=== PATIENT | male | born 1945 | race Caucasian/White ===

== ENCOUNTER 2016-10-04 11:40 | Inpatient (IN) | payer BC, MEDICARE ==
--- NOTE | ~2016-10-04 | DS ---
Discharge Summary [facility] [address] [place]. [address] NAME: HAILEY CYR : 47 STATUS : DIS IN PAT#: [id number] AGE: 71 ADM/REG DATE : 10/04/16 MR#: [id number] REPORT SERV DATE: 10/09/16 DICTATED BY: MARTÍN CINTRON DATE: 10/08/16 REPORT STATUS : Draft TRANSCRIBED BY: MODL DATE: 10/08/16 ADMISSION DATE: 10/04/2016 DISCHARGE DATE: 10/08/2016 DISCHARGE DIAGNOSES: 1. Pulmonary emboli, bilateral. 2. Congestive heart failure with a normal ejection fraction, acute. 3. Acute kidney injury due to diuresis, now resolved. 4. Uncontrolled hypertension, now improved. 5. Obstructive sleep apnea, not on current CPAP therapy. The patient to obtain CPAP after discharge. 6. Type 2 diabetes mellitus with neuropathy. 7. Anemia of chronic disease. 8. Morbid obesity. 9. Obesity and related illnesses with treatment. CONSULTANTS DURING THIS HOSPITALIZATION: None. INVASIVE PROCEDURES DONE DURING THIS HOSPITALIZATION: None. BRIEF HISTORY OF PRESENT ILLNESS: The patient is a 71-year-old white male who was triaged in the emergency room on 10/04/2016 at 1010 hours with complaints of chest pain, dyspnea, abdominal distention, and edema. For a detailed history and physical exam, please see note dictated by Dr. Rigoberto Barron on 10/04/2016. HOSPITAL COURSE: After being admitted to the hospital, this patient was placed on cardiac telemetry, given IV fluids, restrictions, was given IV Lasix. Strict I's and O's were done. Two-dimensional echocardiogram was done, which showed normal ejection fraction. He was placed on an 1800-calorie [place] [employer] diet. Dr. Herrera followed the patient postadmission. He had uncontrolled blood pressure, hydralazine was added, Aldactone was added. The D-dimer was slightly high, so Dr. Herrera ordered a CTA of the chest with contrast, which showed bilateral pulmonary embolisms and it was thought that this was related to his sleep apnea, both lower extremity Dopplers were negative. He was started on Xarelto. The patient has been tolerating Xarelto without difficulty. His stress test was canceled because of the pulmonary embolisms. Due to overdiuresis, his creatinine did go up slightly to about 1.32. We adjusted his medications. Today, his creatinine is 1.12. The patient feels well. He is off his O2. He is ambulatory and feels that he could go home, recover in the home setting, and obtain his CPAP machine in the outpatient setting which has already been ordered by Dr. Berry's office. He remained stable and is being discharged in stable condition. DISCHARGE DISPOSITION: Home. DISCHARGE ACTIVITY: As tolerated once CPAP has been obtained and the patient is using it. I recommended that he does not drive until he is on CPAP therapy. Discharge Summary [address] [facility] [place]. [address] NAME: HAILEY CYR : 47 STATUS : DIS IN PAT#: [id number] AGE: 71 ADM/REG DATE : 10/04/16 MR#: [id number] REPORT SERV DATE: 10/09/16 DICTATED BY: MARTÍN CINTRON DATE: 10/08/16 REPORT STATUS : Draft TRANSCRIBED BY: AUSTEN DATE: 10/08/16 DISCHARGE DIET: An 1800-calorie [place] [employer] diet. DISCHARGE MEDICATIONS: Aspirin 325 mg one tablet daily, gabapentin 300 mg three times daily, losartan 100 mg once at bedtime, Toprol-XL 100 mg once daily, Xarelto 15 mg twice daily for loading dose and then 20 mg once at bedtime, Aldactone 25 mg once daily, Flomax 0.4 mg once at bedtime, hydralazine 50 mg twice daily, Lasix 20 mg once daily, glipizide 2.5 mg twice daily, potassium 20 mEq once daily, metformin 500 mg twice daily, and testosterone gel as directed. DISCHARGE FOLLOWUP: With Dr. Baldev Cui, II, in one week. More than 35 minutes spent planning this patient's discharge, reconciling medications, writing prescriptions, discussing hospital care, and followup with the patient and the family at the bedside and documenting this discharge. ANABELLA/AUSTEN Martín Cintron M.D. / [id number] CC: [place]
--- NOTE | ~2016-10-04 | PUL ---
[id number] [place]. [address] NAME: HAILEY CYR : 47 STATUS : ADM IN [facility]#: [id number] AGE: 71 ADM/REG DATE : 10/04/16 MR#: [id number] REPORT SERV DATE: 10/05/16 DICTATED BY: PAVITHRA MERA DATE: 10/05/16 REPORT STATUS : Draft TRANSCRIBED BY: MODL DATE: 10/05/16 PULMONARY FUNCTION TEST OVERNIGHT OXIMETRY REPORT START DATE OF TESTIN10/04/2016 END DATE OF TESTIN10/05/2016 COMMENTS: Testing conducted with the patient breathing supplemental oxygen at a flow rate of 2 L per minute. RESULTS: Total valid sampling time 7 hours 3 minutes and 42 seconds. Total time with an oxygen saturation less than 88%, 0. Oxygen desaturation event index 5.5. IMPRESSION: There was no significant desaturation during this study conducted while the patient was breathing supplemental oxygen at a flow rate of 2 L/minute. The oxygen desaturation index was mildly elevated suggestive of possible obstructive sleep apnea, though as indicated, the patient did not have significant oxygen desaturation. Recommend formal sleep study to evaluate if clinically indicated. PS/MODPrema Pavithra Mera M.D. / [id number] CC: [place] Petersen
--- NOTE | ~2016-10-04 | HP ---
History And Physical [address] [place]. [address] NAME: HAILEY CYR : 47 STATUS : ADM IN [facility]#: [id number] AGE: 71 ADM/REG DATE : 10/04/16 MR#: [id number] REPORT SERV DATE: 10/04/16 DICTATED BY: RIGOBERTO BRIGHT DATE: 10/04/16 REPORT STATUS : Draft TRANSCRIBED BY: MODPrema DATE: 10/04/16 DATE OF ADMISSION: 10/04/2016 CHIEF COMPLAINT: Shortness of breath and bilateral lower extremity swelling. HISTORY OF PRESENT ILLNESS: This is a 71-year-old male with medical history significant for hypertension, diabetes mellitus type 2, morbid obesity, obstructive sleep apnea, BPH, who presented to the hospital with complaints of shortness of breath and bilateral leg swelling. The patient reports that he noticed progressive shortness of breath that started about three months ago, initially on exertion, but has progressively gotten worse. The patient reports that in the last few weeks, he noticed that his shortness of breath occurs when he walks 100 feet from his living room to his truck. He also reports that there is associated worsening bilateral leg swelling. He reports that he takes Lasix at home 40 mg at night, but despite that he continues to have worsening leg swelling. There is associated two-pillow orthopnea, but denies any PND. The patient reports that there is also associated occasional palpitations and some chest tightness, but denies any significant chest pain. The patient reports that he was diagnosed with obstructive sleep apnea, but has not been compliant with a CPAP machine. He denies any cough, fever, chills, or wheezing. He denies any palpitation or presyncopal or syncopal episodes. REVIEW OF SYSTEMS: A 12-point review of systems performed essentially negative. Positive findings as per HPI. PAST MEDICAL HISTORY: 1. Diabetes mellitus type 2. 2. Morbid obesity. 3. Peripheral neuropathy. 4. Hypertension. 5. Benign prostatic hyperplasia. 6. History of renal stones. 7. Obstructive sleep apnea, on CPAP machine. 8. The patient reports history of colon cancer stage I, treated with surgery. PAST SURGICAL HISTORY: 1. Umbilical hernia repair in 2013. 2. Left knee arthroscopic surgery in 2003. 3. Colectomy. 4. Vasectomy. ALLERGIES: ALLERGIC TO MEPERIDINE. HOME MEDICATIONS: 1. Aspirin 325 mg p.o. tablet daily. 2. Lasix 40 mg p.o. in the evening. History And Physical [address] [address] NAME: HAILEY CYR : 47 STATUS : ADM IN [facility]#: [id number] AGE: 71 ADM/REG DATE : 10/04/16 MR#: [id number] REPORT SERV DATE: 10/04/16 DICTATED BY: RIGOBERTO BRIGHT DATE: 10/04/16 REPORT STATUS : Draft TRANSCRIBED BY: AUSTEN DATE: 10/04/16 3. Gabapentin 300 mg p.o. t.i.d. 4. Glipizide 2.5 mg p.o. before breakfast and supper. 5. Motrin 600 mg p.o. b.i.d. as needed for pain. 6. Losartan 100 mg p.o. at bedtime. 7. Metformin 500 mg p.o. with breakfast. 8. Toprol-XL 100 mg p.o. b.i.d. 9. Potassium 20 mEq p.o. daily. 10.Tamsulosin 0.4 mg p.o. at bedtime. 11.Testosterone 1.62% gel. FAMILY HISTORY: He has two brothers who suffer from congestive heart failure, diabetes mellitus, and hypertension. He reports that one of his brother had an AL at the age of 60. SOCIAL HISTORY: Denies smoking cigarettes, drinking alcohol, or illicit drug use. 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 PHYSICAL EXAMINATION: VITAL SIGNS: Blood pressure 196/92, temperature 97.4, pulse 57 beats per minute, respiratory rate 16 cycles per minute, and saturating 96% on room air. GENERAL: Not in any acute distress. HEENT: Normocephalic, atraumatic. Pupils are equal, round, and reactive. Extraocular muscles intact. Not pale. Anicteric. NECK: Supple. No JVD. CHEST: Equal expansion. LUNGS: Bibasilar crackles with reduced breath sound on the left lower lung field. No wheezing. No rhonchi. CARDIOVASCULAR: Regular rate and rhythm. S1,S2. No rubs. No gallops. No murmurs. ABDOMEN: Obese. Bowel sounds normoactive and nontender. No palpably enlarged organomegaly. EXTREMITIES: Lower extremities; bilateral pitting edema +[address] to the mid thigh. NEUROLOGIC: Alert and oriented x3. Cranial nerves 2 through 12 are intact. Strength in all extremities 5/5. Normal reflexes. LABORATORY DATA: Chemistry: Sodium 143, potassium 3.5, chloride 106, bicarb 30, creatinine is 0.95, BUN 18, glucose 111. Calcium 8.5, total protein 6.7, albumin 3.0, globulin 3.7, total bilirubin 0.4, alkaline phosphatase 69, ALT 27, AST 19. Troponin less than 0.02. BNP 279. Hematology: WBC 7.4, hemoglobin 11.1, hematocrit 35.0, and platelets 197. PT 14.9, INR 1.2. Chest x-ray shows prominent pulmonary vascular congestions with trace of bilateral pleural effusions, small, upon my own reading. Official report is pending at this time. Urinalysis is pending. History And Physical [address] [address] NAME: HAILEY CYR : 47 STATUS : ADM IN [facility]#: [id number] AGE: 71 ADM/REG DATE : 10/04/16 MR#: [id number] REPORT SERV DATE: 10/04/16 DICTATED BY: RIGOBERTO BRIGHT DATE: 10/04/16 REPORT STATUS : Draft TRANSCRIBED BY: AUSTEN DATE: 10/04/16 EKG: Sinus rhythm, ventricular rate of 56, QTc 369. ASSESSMENT AND PLAN: 1. Acute decompensated heart failure, although the patient has no official diagnosis of heart failure given the constellation of symptoms of bilateral lower extremity swelling, orthopnea, shortness of breath with pulmonary vascular congestion, this is in keeping with the clinical diagnosis of acute decompensated heart failure. The patient will be started on IV Lasix. We will continue patient's ARBs, losartan 100 mg p.o. at bedtime. We will also continue patient's beta henrry. I will order an echo to estimate the patient's ejection fraction. I will also consult the heart failure team for the diagnosis of new congestive heart failure. The patient will also be admitted to cardiac telemonitoring floor, will be placed on fluid restriction. We will ensure daily weight and strict I's and O's. 2. Hypertension. The patient's blood pressure is significantly elevated at 190/92 on presentation. Repeat blood pressure at the bedside during my evaluation, blood pressure was 156/66, heart rate was 55. We will continue the patient's home dose antihypertensives and add hydralazine to the patient's blood pressure medications for optimal control. 3. Sinus bradycardia. Heart rate of 55 likely related to beta henrry. No evidence of AV block. 4. Diabetes mellitus. We will check the patient's HbA1c. We will start the patient on subcu insulin at this time. We will discontinue the patient's oral hypoglycemic. The patient will be placed on ADA 1800 calorie diet. 5. Obstructive sleep apnea. We will encourage the patient to bring his CPAP machine to wear it during the course of this admission. The patient has also been counseled on the need for extensive compliance with CPAP machine. 6. Admission disposition: Cardiac telemonitoring floor. 7. Admission status: Inpatient. 8. Code status: Full code. 9. Deep venous thrombosis prophylaxis, heparin subcu. 10.The patient will be admitted under the hospitalist service. IOO/MODL Rigoberto Bright MD / [id number] CC: [place] Petersen
[2016-10-04 11:19] LABS: BASOPHILS 0.5 %; BASOPHILS ABSOLUTE 0.04 10/3/uL (0.0-0.16); EOSINOPHILS 2.6 %; EOSINOPHILS ABSOLUTE 0.19 10/3/uL (0.0-0.53); HEMOGLOBIN 11.7 g/dL (13.6-17.8); IMMATURE GRANULOCYTES 0.1 %; IMMATURE GRANULOCYTES ABSOLUTE 0.01 10/3/uL (0.0-0.11); LYMPHOCYTES ABSOLUTE 1.77 10/3/uL (0.67-4.30); MEAN CORPUS HGB CONC 33.4 g/dL (32.0-36.0); MEAN CORPUSCULAR HEMOGLOB 31.8 pg (26.0-34.0); MEAN PLATELET VOLUME 9.7 fL (9.2-13.0); MONOCYTES 5.4 %; NEUTROPHILS 67.4 %; NEUTROPHILS ABSOLUTE 4.98 10/3/uL (2.02-8.40); RBC DISTRIBUTION WIDTH 13.6 % (12.0-16.0); RED CELL COUNT 3.68 10/6/uL (4.7-6.1)
[2016-10-04 11:20] LABS: ER CBC TAT 0 Hrs 07 Mins; MANUAL DIFF NO %; MEAN CORPUSCULAR VOLUME 95.1 fL (80-100); PLATELET COUNT 197 10/3/uL (150-400); WHITE BLOOD CELLS 7.4 10/3/uL (4.5-10.5)
[2016-10-04 11:27] LABS: INTERNATIONAL NORMAL RATI 1.2 UNITS (-); PROTIME (NOT ORD) 14.9 SEC (12.0-14.5)
[2016-10-04 11:38] LABS: CALCIUM, SERUM 8.5 MG/DL (8.5-10.4); CO2 (CARBON DIOXIDE) 30 MMOL/L (24-34); CREATININE 0.95 MG/DL (0.70-1.30); GFR AFRICAN AMERICAN 94 ML/MIN (>=60); GFR NON AFRICAN AMERICAN 81 ML/MIN (>=60); GLUCOSE, SERUM 119 MG/DL (60-99); SGOT(AST) 16 U/L (5-40); SGPT(ALT) 27 U/L (5-65); SODIUM, SERUM 143 MMOL/L (135-148); TOTAL PROTEIN 6.7 G/DL (6.0-8.5); TROPONIN I <0.02 NG/ML (<0.05)
[2016-10-04 11:39] LABS: A/G RATIO 0.8 (0.7-1.9); ALKALINE PHOSPHATASE 67 U/L (45-117); BUN (BLOOD UREA NITROGEN) 18 MG/DL (6-23); CHLORIDE, SERUM 106 MMOL/L (96-112); GLOBULIN 3.7 G/DL (2.5-4.1); POTASSIUM, SERUM 3.5 MMOL/L (3.5-5.3); TOTAL BILIRUBIN 0.4 MG/DL (0-1.2)
[~2016-10-04 11:40] MED LIST: ACET500CAP PO; ADVIL PO; ASAEC PO; BUM2 PO; CARD90 PO; CIP5 PO; COZAAR100 MG PO; DIOV160 PO; EXFORGE1 TAB PO; FLOMAX4 PO; GLUCOTROL5 PO; GLUCPH PO; K-TABS10 MEQ PO; L20 PO; LAM250 PO; MAX25 PO; MULTIPLE VIT PO; NEUR300 PO; SPIRO25 PO; TESS PO; TOPXL100 PO
[2016-10-04] MEDS ORDERED: L40 PO (13:24)
[2016-10-04] MEDS ORDERED: NEUR300 PO (13:25)
[2016-10-04] MEDS ORDERED: FLOMAX4 PO (13:25)
[2016-10-04] MEDS ORDERED: COZAAR100 MG PO (13:25)
[2016-10-04] MEDS ORDERED: TOPXL100 PO (13:25)
[2016-10-04] MEDS ORDERED: GLUCPH PO (13:26)
[2016-10-04] MEDS ORDERED: KDUR20 PO (13:26)
[2016-10-04] MEDS ORDERED: GLUCOTROL5 PO (13:26)
[2016-10-04] MEDS ORDERED: IBU600 PO (13:27)
[2016-10-04] MEDS ORDERED: ASABAYER PO (13:27)
[2016-10-04] MEDS ORDERED: ANDROGEL2.5 GM TOP (13:27)
[2016-10-04 17:00] LABS: FREE T4 1.17 NG/DL (0.76-1.46)
[2016-10-04 17:30] LABS: ASCORBIC ACID (UR NOT ORDER) NEG (NEG); BILIRUBIN, URINE NEGATIVE (NEG); KETONE, URINE NEGATIVE (NEG); LEUKOCYTE ESTERASE(NOT OR LARGE (NEG)
[2016-10-04 17:31] LABS: WBC (NOT ORDERED) (RFLEX) > 182 (0-5)
[2016-10-05 04:51] LABS: BASOPHILS 0.4 %; BASOPHILS ABSOLUTE 0.03 10/3/uL (0.0-0.16); EOSINOPHILS ABSOLUTE 0.25 10/3/uL (0.0-0.53); HEMOGLOBIN 11.6 g/dL (13.6-17.8); IMMATURE GRANULOCYTES 0.2 %; IMMATURE GRANULOCYTES ABSOLUTE 0.02 10/3/uL (0.0-0.11); LYMPHOCYTES 23.1 %; LYMPHOCYTES ABSOLUTE 1.96 10/3/uL (0.67-4.30); MEAN CORPUS HGB CONC 33.1 g/dL (32.0-36.0); MEAN CORPUSCULAR HEMOGLOB 31.9 pg (26.0-34.0); MEAN CORPUSCULAR VOLUME 96.2 fL (80-100); MEAN PLATELET VOLUME 9.7 fL (9.2-13.0); MONOCYTES 6.8 %; MONOCYTES ABSOLUTE 0.58 10/3/uL (0.21-1.20); NEUTROPHILS 66.5 %; NEUTROPHILS ABSOLUTE 5.63 10/3/uL (2.02-8.40); PLATELET COUNT 190 10/3/uL (150-400); RBC DISTRIBUTION WIDTH 13.7 % (12.0-16.0); RED CELL COUNT 3.64 10/6/uL (4.7-6.1); WHITE BLOOD CELLS 8.5 10/3/uL (4.5-10.5)
[2016-10-05 04:58] LABS: MANUAL DIFF NO %
[2016-10-05 05:09] LABS: ALBUMIN 2.9 G/DL (3.5-5.0); BUN (BLOOD UREA NITROGEN) 17 MG/DL (6-23); CALCIUM, SERUM 8.3 MG/DL (8.5-10.4); CHLORIDE, SERUM 104 MMOL/L (96-112); CO2 (CARBON DIOXIDE) 30 MMOL/L (24-34); CREATININE 0.89 MG/DL (0.70-1.30); GFR AFRICAN AMERICAN 100 ML/MIN (>=60); GFR NON AFRICAN AMERICAN 87 ML/MIN (>=60); GLUCOSE, SERUM 111 MG/DL (60-99); PHOSPHORUS, SERUM 3.6 MG/DL (2.5-4.5); POTASSIUM, SERUM 3.5 MMOL/L (3.5-5.3); SODIUM, SERUM 144 MMOL/L (135-148)
[2016-10-05 15:13] LABS: FERRITIN 73 NG/ML (26-388); IRON BINDING CAPACITY 312 MCG/DL (250-450); IRON, SERUM 83 MCG/DL (35-150)
[2016-10-06 07:04] LABS: BASOPHILS 0.3 %; BASOPHILS ABSOLUTE 0.03 10/3/uL (0.0-0.16); EOSINOPHILS 2.8 %; EOSINOPHILS ABSOLUTE 0.25 10/3/uL (0.0-0.53); HEMATOCRIT 35.3 % (40.0-51.0); HEMOGLOBIN 11.7 g/dL (13.6-17.8); IMMATURE GRANULOCYTES 0.1 %; IMMATURE GRANULOCYTES ABSOLUTE 0.01 10/3/uL (0.0-0.11); LYMPHOCYTES ABSOLUTE 2.28 10/3/uL (0.67-4.30); MEAN CORPUS HGB CONC 33.1 g/dL (32.0-36.0); MEAN CORPUSCULAR HEMOGLOB 31.7 pg (26.0-34.0); MEAN CORPUSCULAR VOLUME 95.7 fL (80-100); MEAN PLATELET VOLUME 9.8 fL (9.2-13.0); MONOCYTES 7.7 %; MONOCYTES ABSOLUTE 0.68 10/3/uL (0.21-1.20); NEUTROPHILS 63.1 %; NEUTROPHILS ABSOLUTE 5.53 10/3/uL (2.02-8.40); PLATELET COUNT 208 10/3/uL (150-400); RBC DISTRIBUTION WIDTH 13.9 % (12.0-16.0); RED CELL COUNT 3.69 10/6/uL (4.7-6.1); WHITE BLOOD CELLS 8.8 10/3/uL (4.5-10.5)
[2016-10-06 07:13] LABS: MANUAL DIFF NO %
[2016-10-06 07:18] LABS: BUN (BLOOD UREA NITROGEN) 24 MG/DL (6-23); CALCIUM, SERUM 8.6 MG/DL (8.5-10.4); CHLORIDE, SERUM 101 MMOL/L (96-112); CO2 (CARBON DIOXIDE) 31 MMOL/L (24-34); CREATININE 1.08 MG/DL (0.70-1.30); GFR AFRICAN AMERICAN 80 ML/MIN (>=60); GFR NON AFRICAN AMERICAN 69 ML/MIN (>=60); GLUCOSE, SERUM 116 MG/DL (60-99); POTASSIUM, SERUM 3.6 MMOL/L (3.5-5.3); SODIUM, SERUM 143 MMOL/L (135-148)
[2016-10-06 17:38] LABS: CEA 1.3 NG/ML
[2016-10-07 08:43] LABS: BASOPHILS 0.2 %; BASOPHILS ABSOLUTE 0.02 10/3/uL (0.0-0.16); EOSINOPHILS 2.6 %; EOSINOPHILS ABSOLUTE 0.21 10/3/uL (0.0-0.53); HEMATOCRIT 38.7 % (40.0-51.0); HEMOGLOBIN 12.6 g/dL (13.6-17.8); IMMATURE GRANULOCYTES 0.1 %; IMMATURE GRANULOCYTES ABSOLUTE 0.01 10/3/uL (0.0-0.11); LYMPHOCYTES 24.1 %; LYMPHOCYTES ABSOLUTE 1.96 10/3/uL (0.67-4.30); MEAN CORPUS HGB CONC 32.6 g/dL (32.0-36.0); MEAN CORPUSCULAR HEMOGLOB 31.9 pg (26.0-34.0); MEAN PLATELET VOLUME 9.5 fL (9.2-13.0); MONOCYTES 6.6 %; MONOCYTES ABSOLUTE 0.54 10/3/uL (0.21-1.20); NEUTROPHILS 66.4 %; NEUTROPHILS ABSOLUTE 5.39 10/3/uL (2.02-8.40); PLATELET COUNT 227 10/3/uL (150-400); RBC DISTRIBUTION WIDTH 13.8 % (12.0-16.0); RED CELL COUNT 3.95 10/6/uL (4.7-6.1); WHITE BLOOD CELLS 8.1 10/3/uL (4.5-10.5)
[2016-10-07 08:54] LABS: CALCIUM, SERUM 8.9 MG/DL (8.5-10.4); CHLORIDE, SERUM 101 MMOL/L (96-112); CO2 (CARBON DIOXIDE) 31 MMOL/L (24-34); CREATININE 1.32 MG/DL (0.70-1.30); GFR AFRICAN AMERICAN 63 ML/MIN (>=60); GFR NON AFRICAN AMERICAN 54 ML/MIN (>=60); GLUCOSE, SERUM 139 MG/DL (60-99); POTASSIUM, SERUM 4.1 MMOL/L (3.5-5.3); SODIUM, SERUM 139 MMOL/L (135-148)
[2016-10-07 08:56] LABS: BUN (BLOOD UREA NITROGEN) 33 MG/DL (6-23)
[2016-10-07 11:32] LABS: A/G 1.27 RATIO (0.9-2.10); ALBUMIN (ELECTRO) 3.75 GM/DL (3.2-5.5); ALPHA 1 (ELECTRO) 0.23 GM/DL (0.1-0.4); ALPHA 1 RELAT % (NOT ORD) 3.4 % (1.0-4.0); ALPHA 2 (ELECTRO) 0.88 GM/DL (0.5-1.10); ALPHA 2 RELAT % 13.2 % (4.5-26.0); BETA GLOBULIN (SPE) 0.94 GM/DL (0.60-1.30); GAMMA RELAT % 13.4 % (6.0-22.0)
[2016-10-07 11:34] LABS: T PROTEIN (ELECT)(NOT OR 6.7 G/DL (6.0-8.5)
[2016-10-08 05:36] LABS: BASOPHILS 0.3 %; BASOPHILS ABSOLUTE 0.02 10/3/uL (0.0-0.16); EOSINOPHILS 3.3 %; EOSINOPHILS ABSOLUTE 0.25 10/3/uL (0.0-0.53); HEMATOCRIT 35.5 % (40.0-51.0); HEMOGLOBIN 11.6 g/dL (13.6-17.8); IMMATURE GRANULOCYTES 0.3 %; IMMATURE GRANULOCYTES ABSOLUTE 0.02 10/3/uL (0.0-0.11); LYMPHOCYTES 33.4 %; MEAN CORPUS HGB CONC 32.7 g/dL (32.0-36.0); MEAN CORPUSCULAR VOLUME 97.8 fL (80-100); MEAN PLATELET VOLUME 9.4 fL (9.2-13.0); MONOCYTES 8.8 %; MONOCYTES ABSOLUTE 0.66 10/3/uL (0.21-1.20); NEUTROPHILS 53.9 %; NEUTROPHILS ABSOLUTE 4.03 10/3/uL (2.02-8.40); PLATELET COUNT 192 10/3/uL (150-400); RBC DISTRIBUTION WIDTH 13.8 % (12.0-16.0); RED CELL COUNT 3.63 10/6/uL (4.7-6.1); WHITE BLOOD CELLS 7.5 10/3/uL (4.5-10.5)
[2016-10-08 05:38] LABS: MANUAL DIFF NO %
[2016-10-08 05:52] LABS: CHLORIDE, SERUM 104 MMOL/L (96-112); CO2 (CARBON DIOXIDE) 29 MMOL/L (24-34); CREATININE 1.12 MG/DL (0.70-1.30); GFR AFRICAN AMERICAN 77 ML/MIN (>=60); GFR NON AFRICAN AMERICAN 66 ML/MIN (>=60); GLUCOSE, SERUM 117 MG/DL (60-99); POTASSIUM, SERUM 3.7 MMOL/L (3.5-5.3); SODIUM, SERUM 141 MMOL/L (135-148)
[2016-10-08 06:02] LABS: BUN (BLOOD UREA NITROGEN) 37 MG/DL (6-23)
[2016-10-08] MEDS ORDERED: XARELTO15 MG PO (09:56)
[2016-10-08] MEDS ORDERED: XARELTO20 MG PO (09:57)
[2016-10-08] MEDS ORDERED: SPIRO25 PO (09:58)
[2016-10-08] MEDS ORDERED: APRES50 PO (09:59)
[2017-02-25] MEDS ORDERED: XARELTO20 MG PO (15:06)
[2017-02-25] MEDS ORDERED: L20 PO (15:07)
[2017-02-25] MEDS ORDERED: MULTI-VIT HP PO (15:09)
[2017-02-25] MEDS ORDERED: NEUR600 PO (15:09)
[2017-02-25] MEDS ORDERED: LOP100 PO (15:21)
== END 2016-10-08 12:22 | disposition home or self-care (01) | DRG 291 ==
LOC: ER 11:40 → 6NO 14:21
PROVIDERS: Emergency Medicine; Hospitalist; Internal Medicine
DX: I11.0 Hypertensive heart disease with heart failure (principal); I26.99 Other pulmonary embolism without acute cor pulmonale; N17.9 Acute kidney failure, unspecified; Z68.42 Body mass index [BMI] 45.0-49.9, adult; I50.31 Acute diastolic (congestive) heart failure; G47.33 Obstructive sleep apnea (adult) (pediatric); D63.8 Anemia in other chronic diseases classified elsewhere; E66.01 Morbid (severe) obesity due to excess calories; N40.1 Benign prostatic hyperplasia with lower urinary tract symptoms; R00.1 Bradycardia, unspecified; E11.42 Type 2 diabetes mellitus with diabetic polyneuropathy; Z85.038 Personal history of other malignant neoplasm of large intestine
CPT/HCPCS: 71010; 71275; 80048; 80053; 80069; 81001; 82272; 82378; 82570; 82728; 82962; 83540; 83550; 83735; 83880; 84155; 84156; 84165; 84439; 84443; 84484; 85025; 85379; 85610; 87077; 87086; 87186; 93005; 93970; 94762; 96374; 99285; A9270-GY; C8929; Q9957; Q9967